=== PATIENT | male | born 1960 | race Caucasian/White ===

== ENCOUNTER 2023-08-30 10:06 | Inpatient (IN) | payer OTHER, MEDICAID ==
[~2023-08-30] VITALS: Ht 172.7 cm; Wt 79.2 kg
[2023-08-30] MEDS ORDERED: SODIUM CHLORIDE 0.9% 1,000 ML IV ONE (10:30)
[2023-08-30 10:48] LABS: Eosinophils # (auto) 0 10 ^3/uL (0-0.8); Eosinophils % (auto) 0.2 % (0.0-7.0); Monocytes # (auto) 1.1 10 ^3/uL (0-1.3); Monocytes % (auto) 8.5 % (0.0-12.0); Neutrophils # (auto) 10.4 10 ^3/uL (1.6-8.6)
[2023-08-30 10:49] LABS: Basophils # (auto) 0.1 10 ^3/uL (0-0.2); Basophils % (auto) 0.4 % (0.0-2.0); Hematocrit 50.4 % (41.0-53.0); Hemoglobin 17.6 g/dL (13.5-17.5); Lymphocytes # (auto) 1.8 10 ^3/uL (0.4-5.4); Lymphocytes % (auto) 13.2 % (10.0-50.0); Mean Corpuscular Hgb Conc. 34.9 g/dL (32.0-36.0); Mean Corpuscular Volume 77.4 fL (80.0-100.0); Neutrophils % (auto) 77.7 % (37.0-80.0); Nucleated Red Blood Cells % 0.2 %; Red Blood Cells 6.51 10^6/uL (4.5-5.90); Red Cell Distribution Width 14.2 % (11.8-14.3); White Blood Cell 13.4 10^3/uL (4.4-10.8)
[2023-08-30 11:03] LABS: Alanine Aminotransferase 13 U/L (7-40); Albumin 4.2 g/dL (3.2-4.8); Alkaline Phosphatase 94 U/L (46-116); Anion Gap 16 (5-15); Aspartate Aminotransferase 10 U/L (13-40); BUN/Creatinine Ratio 25.5 (10.0-20.0); Bilirubin, Total 0.9 mg/dL (0.2-1.0); Blood Urea Nitrogen 28 mg/dL (9-23); Calcium 9.8 mg/dL (8.7-10.4); Carbon Dioxide 23 mmol/L (20-30); Chloride 82 mmol/L (98-107); Glucose 384 mg/dL (74-106); Lipase 44 U/L (12-53); Potassium 3.2 mmol/L (3.5-5.1); Sodium 121 mmol/L (136-145); Total Protein 6.6 g/dL (5.7-8.2)
[2023-08-30] MEDS ORDERED: MORPHINE SULFATE INJ 2 MG/ml SYRG IV PRN (15:45)
[2023-08-30] MEDS ORDERED: ACETAMINOPHEN 325 MG TAB PO PRN (15:45)
[2023-08-30] MEDS ORDERED: SODIUM CHLORIDE 0.9% 1,000 ML IV SCH (15:45)
[2023-08-30] MEDS ORDERED: NITROGLYCERIN 0.4 MG SL TAB SL PRN (15:45)
[2023-08-30] MEDS ORDERED: DEXTROSE (50%) 50ML SYRG IV PRN ×2 (16:15→18:15)
[2023-08-30] MEDS ORDERED: InsuLIN REG 1unit/0.01ml Soln (100units/ml) SC SCH (17:00)
[2023-08-30] MEDS ORDERED: ACCU-CHEK COMFORT CURVE STRIP VI SCH (17:00)
[2023-08-30 18:44] LABS: Chloride 80 mmol/L (98-107); Potassium 3.3 mmol/L (3.5-5.1); Sodium 120 mmol/L (136-145)
[2023-08-30 18:45] LABS: Anion Gap 17 (5-15); Calcium 9.6 mg/dL (8.7-10.4); Carbon Dioxide 23 mmol/L (20-30)
[2023-08-30 18:50] LABS: BUN/Creatinine Ratio 26.7 (10.0-20.0); Blood Urea Nitrogen 35 mg/dL (9-23)
[2023-08-30 19:09] LABS: Glucose 419 mg/dL (74-106)
[2023-08-30] MEDS: ACCU-CHEK COMFORT CURVE STRIP VI SCH (19:30)
[2023-08-30 20:30] VITALS: PULSE 100; RESP 16; O2SAT 93
[2023-08-30] MEDS: SODIUM CHLORIDE 0.9% 1,000 ML IV ONE ×2 (20:41→21:17)
[2023-08-30] MEDS: ONDANSETRON HCL 4 MG/2 ML VIAL ONE (20:43)
[2023-08-30] MEDS: cefTRIAXone 1GM/50ML D5W 50 ML IV ONE ×2 (20:44→21:12)
[2023-08-30] MEDS: INSULIN LISPRO (HUMAN) 100 UNITS/ML ML SC ONE (20:44)
[2023-08-30] MEDS: ONDANSETRON HCL 4 MG/2 ML VIAL IV ONE (20:45)
[2023-08-30] MEDS: INSULIN LANTUS (GLARGINE) 1 /0.01ml (100units/ml) SC ONE (21:11)
[2023-08-30] MEDS: INSULIN DRIP 100 UNIT/100ML 100 ML IV SCH (21:14)
[2023-08-30] MEDS: SODIUM CHLORIDE 0.9% 1,000 ML IV SCH (21:18)
[2023-08-30] MEDS: POTASSIUM EFFERVESENT TAB 25 MEQ GT ONE (21:51)
[2023-08-30] MEDS: POTASSIUM EFFERVESENT TAB 25 MEQ ONE (21:52)
[2023-08-30] MEDS: InsuLIN REG 1unit/0.01ml Soln (100units/ml) SC SCH (22:00)
[2023-08-30] MEDS: ENOXAPARIN SOD 40 MG/0.4 ML SYRINGE SC ONE ×2 (22:01→22:02)
[2023-08-30] MEDS: POTASSIUM CHL 20MEQ/100ML 100 ML IV SCH (22:25)
[2023-08-30] MEDS: POTASSIUM CHL 20MEQ/100ML 100 ML IV ONE (22:26)
[2023-08-31] VITALS (7 sets, daily range): BP systolic 115–131; BP diastolic 65–68; PULSE 85–91; RESP 16–17; TEMP 97.8–98.2; O2SAT 95–100
[2023-08-31] MEDS: POTASSIUM CHL 20MEQ/100ML 100 ML IV ONE (00:58)
[2023-08-31 01:17] LABS: Potassium 2.9 mmol/L (3.5-5.1)
[2023-08-31 01:18] LABS: Anion Gap 9 (5-15); Calcium 7.3 mg/dL (8.7-10.4); Carbon Dioxide 26 mmol/L (20-30)
[2023-08-31 01:23] LABS: BUN/Creatinine Ratio 40.7 (10.0-20.0); Blood Urea Nitrogen 35 mg/dL (9-23)
[2023-08-31 01:29] LABS: Chloride 94 mmol/L (98-107); Glucose 250 mg/dL (74-106); Sodium 129 mmol/L (136-145)
[2023-08-31 03:31] LABS: Urine Bacteria MOD /hpf (None Seen); Urine Blood Negative /uL (Negative); Urine Clarity Turbid (Clear); Urine Color Light-Yellow (Yellow); Urine Hyaline Cast MOD /lpf (0 - 2); Urine Mucus FEW (None Seen); Urine Protein, UAD TRACE (Negative); Urine Specific Gravity 1.023 (1.001-1.035); Urine Urobilinogen Normal (Negative); Urine WBC 65 /hpf (0 - 3); Urine WBC Clumps PRESENT /hpf (None Seen)
[2023-08-31 04:54] LABS: Anion Gap 9 (5-15); Calcium 7.6 mg/dL (8.5-10.1); Carbon Dioxide 25 mmol/L (20-30); Chloride 96 mmol/L (98-107); Potassium 3.4 mmol/L (3.5-5.1); Sodium 130 mmol/L (136-145)
[2023-08-31 05:00] LABS: BUN/Creatinine Ratio 30.7 (10.0-20.0)
[2023-08-31 05:12] LABS: Blood Urea Nitrogen 23 mg/dL (9-23); Glucose 118 mg/dL (74-106)
[2023-08-31] MEDS ORDERED: DEXTROSE (50%) 50ML SYRG IV PRN (05:30)
[2023-08-31] MEDS: InsuLIN REG 1unit/0.01ml Soln (100units/ml) SC SCH (06:38)
[2023-08-31] MEDS: ACCU-CHEK COMFORT CURVE STRIP VI SCH (06:38)
[2023-08-31] MEDS: cefTRIAXone 1GM/50ML D5W 50 ML IV SCH (09:15)
[2023-08-31] MEDS: cefTRIAXone 1GM/50ML D5W 50 ML IV ONE (09:23)
[2023-08-31] MEDS: ENOXAPARIN SOD 40 MG/0.4 ML SYRINGE SC SCH (10:00)
[2023-08-31] MEDS ORDERED: ENOXAPARIN SOD 40 MG/0.4 ML SYRINGE SC SCH (10:00)
[2023-08-31] MEDS ORDERED: HYDR25TA4 PO (11:21)
[2023-08-31] MEDS ORDERED: GLIM4TAB42 PO (11:21)
[2023-08-31] MEDS ORDERED: ASPI-543 PO (11:21)
[2023-08-31] MEDS ORDERED: HYDR-2792 PO (11:21)
[2023-08-31] MEDS: POTASSIUM CHL 20 Meq TABLET PO ONE (12:30)
[2023-08-31 12:51] LABS: Anion Gap 7 (5-15); Carbon Dioxide 28 mmol/L (20-30); Chloride 93 mmol/L (98-107); Potassium 3.3 mmol/L (3.5-5.1); Sodium 128 mmol/L (136-145)
[2023-08-31 12:57] LABS: BUN/Creatinine Ratio 32.1 (10.0-20.0); Blood Urea Nitrogen 26 mg/dL (9-23); Glucose 199 mg/dL (74-106)
[2023-08-31] MEDS: metFORMIN HYDROCHLORIDE 500 MG TAB PO SCH (17:44)
[2023-09-01 05:00] VITALS: BP 139/70; PULSE 78; RESP 14; TEMP 98.1; O2SAT 99
[2023-09-01] MEDS: ACETAMINOPHEN 325 MG TAB PO PRN (06:03)
[2023-09-01 06:58] LABS: Calcium 7.9 mg/dL (8.5-10.1); Chloride 101 mmol/L (98-107); Sodium 131 mmol/L (136-145)
[2023-09-01 06:59] LABS: Anion Gap 6 (5-15); Carbon Dioxide 24 mmol/L (20-30)
[2023-09-01 07:04] LABS: BUN/Creatinine Ratio 15.4 (10.0-20.0); Blood Urea Nitrogen 10 mg/dL (9-23); Glucose 148 mg/dL (74-106); Triglycerides 187 mg/dL (< 150)
[2023-09-01 07:05] LABS: LDL Cholesterol 80 mg/dL (< 100)
[2023-09-01 07:06] LABS: Cholesterol 150 mg/dL (< 200); HDL Cholesterol 34 mg/dL (40-59)
[2023-09-01 07:26] LABS: Magnesium 2.2 mg/dL (1.6-2.6)
[2023-09-01 08:00] VITALS: BP 151/92; PULSE 82; PULSE 84; RESP 20; TEMP 98; O2SAT 99
[2023-09-01 09:00] VITALS: BP 151/92; PULSE 84; RESP 20; TEMP 98; O2SAT 99
[2023-09-01 13:00] VITALS: BP 170/86; PULSE 86; RESP 18; TEMP 97.7; O2SAT 99
[2023-09-01] MEDS ORDERED: INSLISPI SC (13:29)
[2023-09-01] MEDS ORDERED: INSLANTI SC (13:29)
[2023-09-01] MEDS ORDERED: GLIM4TAB42 PO (13:29)
[2023-09-01] MEDS ORDERED: LOSA-533 PO (13:29)
[2023-09-01 17:00] VITALS: BP 149/87; PULSE 85; RESP 18; TEMP 98.2; O2SAT 97
== END 2023-09-01 19:55 | disposition home or self-care (01) | DRG 637 ==
LOC: ER 10:06 → EDBD 10:06 → TELE 15:51 → UNDOADMIN 15:51 → ER 15:51 → TELE 18:14 → TELE-WESTW 08-31 10:34
PROVIDERS: ADMIT Nurse Practitioner Family; ATTEND Internal Medicine Geriatric Medicine
DX: E11.10 Type 2 diabetes mellitus with ketoacidosis without coma (principal); N17.0 Acute kidney failure with tubular necrosis; R65.11 Systemic inflammatory response syndrome (SIRS) of non-infectious origin with acute organ dysfunction; E87.1 Hypo-osmolality and hyponatremia; E87.6 Hypokalemia; E87.8 Other disorders of electrolyte and fluid balance, not elsewhere classified; I10 Essential (primary) hypertension; K21.9 Gastro-esophageal reflux disease without esophagitis; Z79.4 Long term (current) use of insulin; Z59.7 Insufficient social insurance and welfare support; Z91.199 Patient's noncompliance with other medical treatment and regimen due to unspecified reason; Z88.2 Allergy status to sulfonamides
CPT/HCPCS: 36415; 71045; 80048; 80053; 80061; 81001; 82010; 82962; 83036; 83605; 83690; 83735; 83880; 84443; 84484; 85025; 85379; 93005; 96365; 96375; G0378; J1815; J2405; J3480